=== PATIENT | female | born 1950 | race Caucasian/White ===

== ENCOUNTER 2022-11-11 20:30 | Inpatient (IN) | payer BC, MEDICARE ==
[~2022-11-11] VITALS: Ht 167.6 cm; Wt 101.4 kg
[2022-11-11 21:35] LABS: BASOPHILS # (AUTO) 0.1 X10'3 (0-0.2); BASOPHILS % (AUTO) 1.8 % (0-1); EOSINOPHILS # (AUTO) 0.1 X10'3 (0-0.9); EOSINOPHILS % (AUTO) 2.1 % (0-6); HEMATOCRIT 38.2 % (35.0-45.0); HEMOGLOBIN 12.8 g/dl (12.0-16.0); LYMPHOCYTES # (AUTO) 1.5 X10'3 (1.1-4.8); LYMPHOCYTES % (AUTO) 22.8 % (21-51); MEAN CORPUSCULAR HEMOGLOBIN 31.3 PG (27.0-31.0); MEAN CORPUSCULAR HGB CONC 33.5 g/dL (33.0-36.5); MEAN CORPUSCULAR VOLUME 93.4 FL (78-98); MEAN PLATELET VOLUME 7.8 FL (7.4-10.4); MONOCYTES # (AUTO) 0.4 X10'3 (0-0.9); MONOCYTES % (AUTO) 5.9 % (2-12); NEUTROPHILS # (AUTO) 4.5 X10'3 (1.8-7.7); NEUTROPHILS % (AUTO) 67.4 % (42-75); PLATELET COUNT 194 X10'3 (140-440); RED BLOOD COUNT 4.09 X10'6 (4.20-5.60); RED CELL DISTRIBUTION WIDTH 14.5 % (11.5-14.5); WHITE BLOOD COUNT 6.8 X10'3 (4.5-11.0)
[2022-11-11] MEDS ORDERED: PEG 3350/Na sulf,bicarb,Cl/KCl oral sol 4 liter bottle PO ONE (21:40)
[2022-11-11 21:46] LABS: ALANINE AMINOTRANSFERASE 24 U/L (12-78); ALBUMIN 3.5 G/DL (3.4-5.0); ALBUMIN/GLOBULIN RATIO 0.9 (1.1-1.5); ALKALINE PHOSPHATASE 86 IU/L (46-116); ANION GAP 7 (8-16); ASPARTATE AMINO TRANSFERASE 20 U/L (10-37); BILIRUBIN,TOTAL 0.2 MG/DL (0.1-1.0); BLOOD UREA NITROGEN 17 MG/DL (7-18); BUN/CREATININE RATIO 19.5 (10.0-20.0); CALCIUM 9.1 MG/DL (8.5-10.1); CHLORIDE 105 MMOL/L (99-107); CREATININE 0.87 MG/DL (0.40-0.90); GLUCOSE 96 MG/DL (70-104); POTASSIUM 3.8 MMOL/L (3.5-5.1); SODIUM 141 MMOL/L (135-145); TOTAL CARBON DIOXIDE 28.9 MMOL/L (24-32); TOTAL PROTEIN 7.3 G/DL (6.4-8.2); eGFR 64 ML/MIN
[2022-11-11] MEDS ORDERED: HYDROcodone/acetaminophen 10/325mg tab PO ONE (22:35)
[2022-11-11] MEDS ORDERED: ondansetron/PF 4mg/2ml inj IV PRN (22:40)
[2022-11-11] MEDS ORDERED: potassium Cl 20 mEq SR tablet PO PRN ×2 (22:40)
[2022-11-11] MEDS ORDERED: magnesium 4gm in 100ml NS 100 ML IV PRN (22:40)
[2022-11-11] MEDS ORDERED: magnesium Cl slow-release 64mg tablet PO PRN (22:40)
[2022-11-11] MEDS ORDERED: magnesium 2GM in 50ml NS 50 ML IV PRN (22:40)
[2022-11-11] MEDS ORDERED: potassium Cl 40MEQ/1/2NS 520ml 520 ML IV PRN (22:40)
[2022-11-11] MEDS ORDERED: acetaminophen 325mg tablet PO PRN (22:40)
[2022-11-11] MEDS: normal saline 1000ml 1,000 ML IV SCH (23:18)
--- NOTE | 2022-11-12 00:15 | NUR ---
PER DR BHATTI, NOT NECESSARY TO FIND BATTERIES IN PTS FECES ABSENCE OF FOREIGN BODIES WILL BE CONFIRMED WITH XRAY. PT IS IN BATHROOM NEARLY CONSTANTLY, SO OBTAINING FREQUENT VITAL SIGNS NOT PRACTICAL AT THIS TIME
[2022-11-12 03:50] LABS: MEAN PLATELET VOLUME 7.8 FL (7.4-10.4)
[2022-11-12 03:52] LABS: BASOPHILS % (AUTO) 0.5 % (0-1); EOSINOPHILS # (AUTO) 0.1 X10'3 (0-0.9); EOSINOPHILS % (AUTO) 2.4 % (0-6); HEMATOCRIT 35.4 % (35.0-45.0); HEMOGLOBIN 11.9 g/dl (12.0-16.0); LYMPHOCYTES # (AUTO) 1.7 X10'3 (1.1-4.8); LYMPHOCYTES % (AUTO) 28.1 % (21-51); MEAN CORPUSCULAR HEMOGLOBIN 31.5 PG (27.0-31.0); MEAN CORPUSCULAR HGB CONC 33.6 g/dL (33.0-36.5); MEAN CORPUSCULAR VOLUME 93.9 FL (78-98); MONOCYTES # (AUTO) 0.5 X10'3 (0-0.9); MONOCYTES % (AUTO) 8.1 % (2-12); NEUTROPHILS # (AUTO) 3.6 X10'3 (1.8-7.7); NEUTROPHILS % (AUTO) 60.9 % (42-75); PLATELET COUNT 179 X10'3 (140-440); RED BLOOD COUNT 3.77 X10'6 (4.20-5.60); RED CELL DISTRIBUTION WIDTH 14.4 % (11.5-14.5); WHITE BLOOD COUNT 5.9 X10'3 (4.5-11.0)
[2022-11-12 03:53] LABS: ALANINE AMINOTRANSFERASE 20 U/L (12-78); ALBUMIN/GLOBULIN RATIO 0.9 (1.1-1.5); ALKALINE PHOSPHATASE 70 IU/L (46-116); ANION GAP 9 (8-16); ASPARTATE AMINO TRANSFERASE 14 U/L (10-37); BILIRUBIN,TOTAL 0.4 MG/DL (0.1-1.0); BLOOD UREA NITROGEN 11 MG/DL (7-18); BUN/CREATININE RATIO 18.3 (10.0-20.0); CALCIUM 8.3 MG/DL (8.5-10.1); CHLORIDE 109 MMOL/L (99-107); GLUCOSE 89 MG/DL (70-104); MAGNESIUM 1.8 MG/DL (1.5-2.4); POTASSIUM 3.4 MMOL/L (3.5-5.1); SODIUM 145 MMOL/L (135-145); TOTAL PROTEIN 6.2 G/DL (6.4-8.2); eGFR > 90 ML/MIN
[2022-11-12] MEDS: K and/or MAG REPLACEMENT MC SCH ×2 (08:33→20:00)
[2022-11-12] MEDS ORDERED: albuterol 2.5 MG/3 ML nebule NEB PRN (09:35)
--- NOTE | 2022-11-12 12:42 | NUR ---
SPOKE WITH SMILEY FROM [facility], UPDATE WAS GIVEN. THEY CONFIRMED THAT THE MONITORING OCCURRING IS APPROPRIATE AT THIS TIME. [facility] WILL F/U AGAIN TOMORROW
[2022-11-12] MEDS ORDERED: LATA2.5D14 RIGHTEYE (14:33)
[2022-11-12] MEDS ORDERED: NYST60PO2 VG (14:33)
[2022-11-12] MEDS ORDERED: DIPH1TAB PO (14:34)
[2022-11-12] MEDS ORDERED: OXYB5TAB16 PO (14:35)
[2022-11-12] MEDS ORDERED: NYST15CR36 VG (14:36)
[2022-11-12] MEDS ORDERED: LORA-75 PO (14:37)
[2022-11-12] MEDS ORDERED: FAMO20TA10 PO (14:37)
[2022-11-12] MEDS ORDERED: ACET-2971 PO (14:38)
[2022-11-12] MEDS ORDERED: ATOR20TA66 PO (14:39)
[2022-11-12] MEDS ORDERED: LOSA50TA64 PO (14:39)
[2022-11-12] MEDS ORDERED: CRAN400C PO (14:40)
[2022-11-12] MEDS ORDERED: SERT-434 PO (14:41)
[2022-11-12] MEDS ORDERED: OMEP20CA16 PO (14:42)
[2022-11-12] MEDS ORDERED: ALBU17AE26 IH (14:42)
[2022-11-12] MEDS ORDERED: ASPIRIN CAFFEINE PO (14:45)
[2022-11-12 15:58] VITALS: PULSE 62; RESP 15; O2SAT 92
[2022-11-12 16:30] VITALS: BP 170/75; PULSE 62; RESP 16; TEMP 98.1; O2SAT 94
--- NOTE | 2022-11-12 17:31 | NUR ---
PAGER ID: [phone] MESSAGE: jaime garza [phone] re: Kaela Parra [phone]. please address med rec, pts BP 177/75. thank you
[2022-11-12] MEDS ORDERED: pantoprazole 40mg Tablet.DR PO PRN (17:35)
[2022-11-12] MEDS ORDERED: acetaminophen 325mg tablet PO PRN (17:35)
[2022-11-12] MEDS ORDERED: non-formulary drug (Albuterol 2 PUFFS) IH PRN (17:35)
[2022-11-12] MEDS: losartan 50mg tablet PO SCH (17:55)
[2022-11-12 18:00] VITALS: BP 170/75; PULSE 67; RESP 16; TEMP 98.1; O2SAT 94
--- NOTE | 2022-11-12 18:00 | NUR ---
Patient in room [facility] 4008. I have received report from INESSA Cardona and had the opportunity to ask questions and assume patient care.
[2022-11-12] MEDS: normal saline 1000ml 1,000 ML IV SCH (18:40)
[2022-11-12 22:04] VITALS: BP 161/66; PULSE 61; RESP 16; TEMP 98; O2SAT 96
--- NOTE | 2022-11-12 22:51 | NUR ---
2 nurses attempted to put a new iv in pt without success. Addendum: 11/13/22 at 0158 by Janeth Balderas RN supervisor [employer] attempted to start iv but was unable to start. call to er charge nurse to see if she can start an iv but is unable to come to floor. called icu charge nurse to see if she could start an iv but is unable to come to floor.
[2022-11-13] VITALS (7 sets, daily range): BP systolic 130–163; BP diastolic 66–82; PULSE 54–75; RESP 14–18; TEMP 97.5–98.4; O2SAT 94–96
--- NOTE | 2022-11-13 05:59 | NUR ---
Problems reprioritized. Patient report given, questions answered & plan of care reviewed with INESSA Cardona.
[2022-11-13] MEDS: losartan 50mg tablet PO SCH (07:09)
[2022-11-13] MEDS: latanoprost 0.005% 2.5ml ophthalmic drops RIGHTEYE SCH (07:09)
[2022-11-13] MEDS: atorvastatin 20mg tablet PO SCH (07:09)
[2022-11-13] MEDS: sertraline 50mg tablet PO SCH (07:10)
[2022-11-13 07:13] LABS: BASOPHILS % (AUTO) 0.6 % (0-1); EOSINOPHILS # (AUTO) 0.2 X10'3 (0-0.9); EOSINOPHILS % (AUTO) 3.1 % (0-6); HEMATOCRIT 42.7 % (35.0-45.0); LYMPHOCYTES # (AUTO) 1.8 X10'3 (1.1-4.8); LYMPHOCYTES % (AUTO) 29.8 % (21-51); MEAN CORPUSCULAR HEMOGLOBIN 30.9 PG (27.0-31.0); MEAN CORPUSCULAR HGB CONC 32.7 g/dL (33.0-36.5); MEAN CORPUSCULAR VOLUME 94.6 FL (78-98); MEAN PLATELET VOLUME 8.7 FL (7.4-10.4); MONOCYTES # (AUTO) 0.5 X10'3 (0-0.9); MONOCYTES % (AUTO) 7.7 % (2-12); NEUTROPHILS # (AUTO) 3.5 X10'3 (1.8-7.7); NEUTROPHILS % (AUTO) 58.8 % (42-75); PLATELET COUNT 215 X10'3 (140-440); RED BLOOD COUNT 4.51 X10'6 (4.20-5.60); RED CELL DISTRIBUTION WIDTH 14.5 % (11.5-14.5)
[2022-11-13 07:19] LABS: ALANINE AMINOTRANSFERASE 24 U/L (12-78); ALBUMIN 3.6 G/DL (3.4-5.0); ALBUMIN/GLOBULIN RATIO 0.9 (1.1-1.5); ALKALINE PHOSPHATASE 89 IU/L (46-116); ANION GAP 7 (8-16); ASPARTATE AMINO TRANSFERASE 24 U/L (10-37); BILIRUBIN,TOTAL 0.6 MG/DL (0.1-1.0); BLOOD UREA NITROGEN 7 MG/DL (7-18); BUN/CREATININE RATIO 9.2 (10.0-20.0); CALCIUM 9.3 MG/DL (8.5-10.1); CHLORIDE 106 MMOL/L (99-107); CREATININE 0.76 MG/DL (0.40-0.90); GLUCOSE 94 MG/DL (70-104); MAGNESIUM 2.2 MG/DL (1.5-2.4); POTASSIUM 3.9 MMOL/L (3.5-5.1); SODIUM 140 MMOL/L (135-145); TOTAL CARBON DIOXIDE 26.6 MMOL/L (24-32); TOTAL PROTEIN 7.7 G/DL (6.4-8.2); eGFR 75 ML/MIN
[2022-11-13] MEDS: NYSTATIN CREAM - 30GM TUBE TP PRN (07:36)
[2022-11-13] MEDS: K and/or MAG REPLACEMENT MC SCH ×2 (08:00→18:40)
[2022-11-13] MEDS: polyethylene glycol 3350 17gm powd pack PO SCH ×2 (10:50→21:02)
[2022-11-13] MEDS: normal saline 1000ml 1,000 ML IV SCH ×2 (12:54→19:41)
--- NOTE | 2022-11-13 16:15 | NUR ---
Pt remains in good spirits. C/o headache this am, Acetaminophen administered per orders. Repeat KUB taken today. Miralax given this shift, no bowel movement yet. Primary RN encouraged pt to ambulate in the torres however patient states she doesn't want to be seen by anyone. Pt does ambulate to bathroom. Will continue to monitor patient
--- NOTE | 2022-11-13 18:42 | NUR ---
Patient in room [facility]TH[facility] 4008. I have received report from DAMIÁN WYLIE and had the opportunity to ask questions and assume patient care.
--- NOTE | 2022-11-13 23:03 | NUR ---
Agree with DUAL HOSE CEMENTER assessment except where I documented my findings.
[2022-11-14] VITALS (7 sets, daily range): BP systolic 106–156; BP diastolic 64–80; PULSE 61–93; RESP 15–18; TEMP 96.9–98.8; O2SAT 92–93
[2022-11-14 06:13] LABS: BASOPHILS % (AUTO) 0.7 % (0-1); EOSINOPHILS # (AUTO) 0.2 X10'3 (0-0.9); EOSINOPHILS % (AUTO) 3.9 % (0-6); HEMATOCRIT 39.9 % (35.0-45.0); HEMOGLOBIN 13.2 g/dl (12.0-16.0); LYMPHOCYTES # (AUTO) 1.4 X10'3 (1.1-4.8); LYMPHOCYTES % (AUTO) 26.7 % (21-51); MEAN CORPUSCULAR HEMOGLOBIN 31.5 PG (27.0-31.0); MEAN CORPUSCULAR HGB CONC 33.2 g/dL (33.0-36.5); MEAN CORPUSCULAR VOLUME 94.8 FL (78-98); MEAN PLATELET VOLUME 7.9 FL (7.4-10.4); MONOCYTES # (AUTO) 0.5 X10'3 (0-0.9); NEUTROPHILS % (AUTO) 59.7 % (42-75); PLATELET COUNT 192 X10'3 (140-440); RED BLOOD COUNT 4.21 X10'6 (4.20-5.60); RED CELL DISTRIBUTION WIDTH 14.2 % (11.5-14.5); WHITE BLOOD COUNT 5.1 X10'3 (4.5-11.0)
--- NOTE | 2022-11-14 06:25 | NUR ---
Problems reprioritized. Patient report given, questions answered & plan of care reviewed with suhas garza.
--- NOTE | 2022-11-14 06:31 | NUR ---
Patient in room [facility]TH[facility] 4008. I have received report from MARTY Carmona and had the opportunity to ask questions and assume patient care.
[2022-11-14 06:45] LABS: ALANINE AMINOTRANSFERASE 24 U/L (12-78); ALBUMIN 3.2 G/DL (3.4-5.0); ALBUMIN/GLOBULIN RATIO 0.9 (1.1-1.5); ALKALINE PHOSPHATASE 73 IU/L (46-116); ANION GAP 8 (8-16); ASPARTATE AMINO TRANSFERASE 19 U/L (10-37); BILIRUBIN,TOTAL 0.5 MG/DL (0.1-1.0); BLOOD UREA NITROGEN 6 MG/DL (7-18); BUN/CREATININE RATIO 8.5 (10.0-20.0); CALCIUM 9.3 MG/DL (8.5-10.1); CHLORIDE 107 MMOL/L (99-107); CREATININE 0.71 MG/DL (0.40-0.90); GLUCOSE 96 MG/DL (70-104); POTASSIUM 3.8 MMOL/L (3.5-5.1); SODIUM 142 MMOL/L (135-145); TOTAL CARBON DIOXIDE 26.6 MMOL/L (24-32); TOTAL PROTEIN 6.9 G/DL (6.4-8.2); eGFR 81 ML/MIN
[2022-11-14] MEDS: losartan 50mg tablet PO SCH (07:26)
[2022-11-14] MEDS: atorvastatin 20mg tablet PO SCH (07:26)
[2022-11-14] MEDS: sertraline 50mg tablet PO SCH (07:26)
[2022-11-14] MEDS: latanoprost 0.005% 2.5ml ophthalmic drops RIGHTEYE SCH (07:27)
[2022-11-14] MEDS: K and/or MAG REPLACEMENT MC SCH ×2 (08:00→20:00)
[2022-11-14] MEDS: normal saline 1000ml 1,000 ML IV SCH ×2 (08:51→20:56)
[2022-11-14] MEDS ORDERED: bisacodyl 5mg tablet.DR PO ONE (14:30)
--- NOTE | 2022-11-14 16:25 | NUR ---
Patient stated having BM and would like to wait to have soap suds enema.
--- NOTE | 2022-11-14 18:36 | NUR ---
Problems reprioritized. Patient report given, questions answered & plan of care reviewed with LVN. Kristine.
[2022-11-14] MEDS: polyethylene glycol 3350 17gm powd pack PO SCH (20:48)
[2022-11-14] MEDS: NYSTATIN CREAM - 30GM TUBE TP PRN (20:53)
[2022-11-15] VITALS (7 sets, daily range): BP systolic 135–161; BP diastolic 68–75; PULSE 54–70; RESP 16–18; TEMP 97.2–98.2; O2SAT 94–97
--- NOTE | 2022-11-15 06:11 | NUR ---
TOOL DESIGN ENGINEER documentation: I have reviewed and agree with all interventions, assessments performed and documented by Kristine. Addendum: 11/15/22 at 0612 by Michael Martins RN Amended: Links added.
--- NOTE | 2022-11-15 06:16 | NUR ---
Problems reprioritized. Patient report given, questions answered & plan of care reviewed with Jannet FERGUSON.
[2022-11-15 07:04] LABS: BASOPHILS % (AUTO) 0.7 % (0-1); EOSINOPHILS # (AUTO) 0.2 X10'3 (0-0.9); HEMATOCRIT 37.4 % (35.0-45.0); HEMOGLOBIN 12.5 g/dl (12.0-16.0); LYMPHOCYTES # (AUTO) 1.5 X10'3 (1.1-4.8); MEAN CORPUSCULAR HEMOGLOBIN 31.8 PG (27.0-31.0); MEAN CORPUSCULAR HGB CONC 33.5 g/dL (33.0-36.5); MEAN CORPUSCULAR VOLUME 94.9 FL (78-98); MEAN PLATELET VOLUME 8.8 FL (7.4-10.4); MONOCYTES # (AUTO) 0.5 X10'3 (0-0.9); MONOCYTES % (AUTO) 8.2 % (2-12); NEUTROPHILS # (AUTO) 3.6 X10'3 (1.8-7.7); NEUTROPHILS % (AUTO) 62.1 % (42-75); PLATELET COUNT 180 X10'3 (140-440); RED BLOOD COUNT 3.93 X10'6 (4.20-5.60); RED CELL DISTRIBUTION WIDTH 14.4 % (11.5-14.5); WHITE BLOOD COUNT 5.8 X10'3 (4.5-11.0)
[2022-11-15 07:05] LABS: ALANINE AMINOTRANSFERASE 20 U/L (12-78); ALBUMIN 3.1 G/DL (3.4-5.0); ALBUMIN/GLOBULIN RATIO 0.9 (1.1-1.5); ALKALINE PHOSPHATASE 78 IU/L (46-116); ANION GAP 8 (8-16); ASPARTATE AMINO TRANSFERASE 20 U/L (10-37); BILIRUBIN,TOTAL 0.4 MG/DL (0.1-1.0); BLOOD UREA NITROGEN 8 MG/DL (7-18); BUN/CREATININE RATIO 11.6 (10.0-20.0); CALCIUM 8.8 MG/DL (8.5-10.1); CHLORIDE 107 MMOL/L (99-107); CREATININE 0.69 MG/DL (0.40-0.90); GLUCOSE 93 MG/DL (70-104); MAGNESIUM 2.2 MG/DL (1.5-2.4); SODIUM 140 MMOL/L (135-145); TOTAL CARBON DIOXIDE 25.4 MMOL/L (24-32); TOTAL PROTEIN 6.5 G/DL (6.4-8.2); eGFR 84 ML/MIN
[2022-11-15] MEDS: latanoprost 0.005% 2.5ml ophthalmic drops RIGHTEYE SCH (07:43)
[2022-11-15] MEDS: losartan 50mg tablet PO SCH (07:44)
[2022-11-15] MEDS: atorvastatin 20mg tablet PO SCH (07:44)
[2022-11-15] MEDS: sertraline 50mg tablet PO SCH (07:44)
[2022-11-15] MEDS: K and/or MAG REPLACEMENT MC SCH ×2 (08:00→19:39)
--- NOTE | 2022-11-15 12:07 | NUR ---
I have reviewed and agree with interventions, assessments, and documentation by Jannet Shirley LVN.
[2022-11-15] MEDS: mupirocin 2% nasal ointment 1gm UD NS SCH ×2 (14:12→19:39)
[2022-11-15] MEDS: normal saline 1000ml 1,000 ML IV SCH ×2 (18:14→23:50)
--- NOTE | 2022-11-15 18:32 | NUR ---
Problems reprioritized. Patient report given, questions answered & plan of care reviewed with Kristine CRISOSTOMO.
[2022-11-15] MEDS: polyethylene glycol 3350 17gm powd pack PO SCH (20:47)
[2022-11-16] VITALS (7 sets, daily range): BP systolic 141–161; BP diastolic 72–97; PULSE 60–92; RESP 16–20; TEMP 96.9–98.1; O2SAT 92–98
--- NOTE | 2022-11-16 06:04 | NUR ---
I have reviewed and agree with all interventions, assessments performed and documented by MARTY LOMBARDO.
--- NOTE | 2022-11-16 06:08 | NUR ---
Problems reprioritized. Patient report given, questions answered & plan of care reviewed with DEREK FERGUSON.
[2022-11-16 06:40] LABS: BASOPHILS % (AUTO) 0.4 % (0-1); EOSINOPHILS # (AUTO) 0.1 X10'3 (0-0.9); EOSINOPHILS % (AUTO) 1.8 % (0-6); HEMATOCRIT 39.7 % (35.0-45.0); HEMOGLOBIN 13.1 g/dl (12.0-16.0); LYMPHOCYTES # (AUTO) 1.4 X10'3 (1.1-4.8); LYMPHOCYTES % (AUTO) 21.9 % (21-51); MEAN CORPUSCULAR HEMOGLOBIN 31.2 PG (27.0-31.0); MEAN CORPUSCULAR HGB CONC 32.9 g/dL (33.0-36.5); MEAN CORPUSCULAR VOLUME 94.9 FL (78-98); MEAN PLATELET VOLUME 8.3 FL (7.4-10.4); MONOCYTES # (AUTO) 0.5 X10'3 (0-0.9); MONOCYTES % (AUTO) 7.4 % (2-12); NEUTROPHILS # (AUTO) 4.5 X10'3 (1.8-7.7); NEUTROPHILS % (AUTO) 68.5 % (42-75); PLATELET COUNT 187 X10'3 (140-440); RED BLOOD COUNT 4.19 X10'6 (4.20-5.60); RED CELL DISTRIBUTION WIDTH 14.2 % (11.5-14.5); WHITE BLOOD COUNT 6.5 X10'3 (4.5-11.0)
[2022-11-16 07:00] LABS: ALANINE AMINOTRANSFERASE 22 U/L (12-78); ALBUMIN 3.2 G/DL (3.4-5.0); ALBUMIN/GLOBULIN RATIO 0.8 (1.1-1.5); ALKALINE PHOSPHATASE 81 IU/L (46-116); ANION GAP 7 (8-16); ASPARTATE AMINO TRANSFERASE 23 U/L (10-37); BILIRUBIN,TOTAL 0.4 MG/DL (0.1-1.0); BLOOD UREA NITROGEN 7 MG/DL (7-18); BUN/CREATININE RATIO 9.5 (10.0-20.0); CALCIUM 9.1 MG/DL (8.5-10.1); CHLORIDE 108 MMOL/L (99-107); CREATININE 0.74 MG/DL (0.40-0.90); GLUCOSE 92 MG/DL (70-104); SODIUM 142 MMOL/L (135-145); TOTAL CARBON DIOXIDE 27.3 MMOL/L (24-32); eGFR 77 ML/MIN
[2022-11-16 07:04] LABS: POTASSIUM 3.9 MMOL/L (3.5-5.1)
[2022-11-16] MEDS: sertraline 50mg tablet PO SCH (07:32)
[2022-11-16] MEDS: atorvastatin 20mg tablet PO SCH (07:32)
[2022-11-16] MEDS: losartan 50mg tablet PO SCH (07:33)
[2022-11-16] MEDS: mupirocin 2% nasal ointment 1gm UD NS SCH ×2 (07:35→21:48)
[2022-11-16] MEDS: latanoprost 0.005% 2.5ml ophthalmic drops RIGHTEYE SCH (07:37)
[2022-11-16] MEDS: K and/or MAG REPLACEMENT MC SCH ×2 (07:41→20:00)
--- NOTE | 2022-11-16 12:33 | NUR ---
Initial: Pt admit DX ingestion error of 6 hearing aid batteries and HTN per EMR. PO 100% initial clear and full liquids diets past 4 days though only meeting ~42% protein and ~92% kcal estimated needs given nature of restrictive diets. Pt NPO this AM pending colonoscopic intervention since still has not passed batteries despite multiple BM's per EMR. MARIA DEL CARMEN d/w CREDIT ASSESSMENT ANALYST recommends advancing to solids if MD agreeable post-procedure. In meantime will send shakes TIDWM to better meet needs-dietary notified. LBM 11/16 per EMR. Will continue to follow. Rec: 1. advance to regular diet as medically indicated 2. shakes TIDWM while on full liquids to assist meeting needs 3. routine bowel care 4. if to remain on liquids diet; consider routine MVM per physician discretion 5. scaled wt this admit; subsequent weekly wt Addendum: 11/16/22 at [address] Amended: Links added.
[2022-11-16] MEDS ORDERED: PEG 3350/Na sulf,bicarb,Cl/KCl oral sol 4 liter bottle PO ONE (16:15)
--- NOTE | 2022-11-16 18:00 | NUR ---
I have reviewed and agree with interventions, assessments, and documentation by Jannet Shirley LVN.
--- NOTE | 2022-11-16 18:20 | NUR ---
Patient in room [facility] 4008. I have received report from MARTY REED and had the opportunity to ask questions and assume patient care.
[2022-11-16] MEDS: normal saline 1000ml 1,000 ML IV SCH (20:54)
[2022-11-16] MEDS: polyethylene glycol 3350 17gm powd pack PO SCH (21:30)
[2022-11-17] VITALS (8 sets, daily range): BP systolic 125–161; BP diastolic 62–88; PULSE 67–85; RESP 15–18; TEMP 97.5–98.7; O2SAT 92–95
--- NOTE | 2022-11-17 06:15 | NUR ---
Problems reprioritized. Patient report given, questions answered & plan of care reviewed with MARTY REED.
[2022-11-17] MEDS: mupirocin 2% nasal ointment 1gm UD NS SCH ×2 (07:57→19:54)
[2022-11-17] MEDS: sertraline 50mg tablet PO SCH (07:58)
[2022-11-17] MEDS: atorvastatin 20mg tablet PO SCH (07:58)
[2022-11-17] MEDS: losartan 50mg tablet PO SCH (08:00)
[2022-11-17] MEDS: K and/or MAG REPLACEMENT MC SCH ×2 (08:00→18:48)
[2022-11-17] MEDS: latanoprost 0.005% 2.5ml ophthalmic drops RIGHTEYE SCH (08:01)
[2022-11-17] MEDS: normal saline 1000ml 1,000 ML IV SCH ×2 (10:14→23:34)
--- NOTE | 2022-11-17 18:00 | NUR ---
I have reviewed and agree with interventions, assessments, and documentation by Jannet Shirley LVN.
--- NOTE | 2022-11-17 18:30 | NUR ---
Patient in room [facility]TH[facility] 4008. I have received report from Jannet FERGUSON and had the opportunity to ask questions and assume patient care.
[2022-11-17] MEDS: polyethylene glycol 3350 17gm powd pack PO SCH (19:54)
[2022-11-18] MEDS: normal saline 1000ml 1,000 ML IV SCH (03:59)
[2022-11-18 06:00] VITALS: BP 139/68; PULSE 65; RESP 14; TEMP 97.7; O2SAT 95
--- NOTE | 2022-11-18 06:37 | NUR ---
Patient in room [facility] 4008. I have received report from INESSA Amaya and had the opportunity to ask questions and assume patient care.
[2022-11-18 07:50] VITALS: PULSE 75; RESP 16; O2SAT 97
[2022-11-18] MEDS: mupirocin 2% nasal ointment 1gm UD NS SCH (07:56)
[2022-11-18] MEDS: latanoprost 0.005% 2.5ml ophthalmic drops RIGHTEYE SCH (07:56)
[2022-11-18] MEDS: sertraline 50mg tablet PO SCH (07:57)
[2022-11-18] MEDS: losartan 50mg tablet PO SCH (07:57)
[2022-11-18] MEDS: atorvastatin 20mg tablet PO SCH (07:57)
[2022-11-18 08:00] VITALS: RESP 14; O2SAT 95
[2022-11-18] MEDS: K and/or MAG REPLACEMENT MC SCH (08:00)
[2022-11-18 10:00] VITALS: BP 139/78; PULSE 71; RESP 18; TEMP 96.6; O2SAT 94
[2022-11-18 10:38] LABS: BASOPHILS % (AUTO) 0.5 % (0-1); EOSINOPHILS # (AUTO) 0.1 X10'3 (0-0.9); EOSINOPHILS % (AUTO) 1.1 % (0-6); HEMATOCRIT 39.3 % (35.0-45.0); HEMOGLOBIN 13.1 g/dl (12.0-16.0); LYMPHOCYTES # (AUTO) 1.4 X10'3 (1.1-4.8); LYMPHOCYTES % (AUTO) 26.4 % (21-51); MEAN CORPUSCULAR HEMOGLOBIN 31.4 PG (27.0-31.0); MEAN CORPUSCULAR HGB CONC 33.2 g/dL (33.0-36.5); MEAN CORPUSCULAR VOLUME 94.4 FL (78-98); MEAN PLATELET VOLUME 8.1 FL (7.4-10.4); MONOCYTES # (AUTO) 0.4 X10'3 (0-0.9); MONOCYTES % (AUTO) 7.7 % (2-12); NEUTROPHILS # (AUTO) 3.3 X10'3 (1.8-7.7); NEUTROPHILS % (AUTO) 64.3 % (42-75); PLATELET COUNT 183 X10'3 (140-440); RED BLOOD COUNT 4.16 X10'6 (4.20-5.60); RED CELL DISTRIBUTION WIDTH 14.2 % (11.5-14.5); WHITE BLOOD COUNT 5.1 X10'3 (4.5-11.0)
[2022-11-18 10:47] LABS: ALBUMIN 3.3 G/DL (3.4-5.0); ANION GAP 8 (8-16); BLOOD UREA NITROGEN 9 MG/DL (7-18); CALCIUM 9.3 MG/DL (8.5-10.1); CHLORIDE 106 MMOL/L (99-107); CREATININE 0.69 MG/DL (0.40-0.90); GLUCOSE 137 MG/DL (70-104); POTASSIUM 3.8 MMOL/L (3.5-5.1); SODIUM 139 MMOL/L (135-145); TOTAL CARBON DIOXIDE 24.7 MMOL/L (24-32); eGFR 84 ML/MIN
--- NOTE | 2022-11-18 13:51 | NUR ---
PHYSICIAN RELATIONS REPRESENTATIVE documentation: I have reviewed and agree with all interventions, assessments performed and documented by Gio Cobian LVN.
--- NOTE | 2022-11-18 16:50 | NUR ---
Pt stable for discharge. IV discontinued before d/c. Patient left with all belongings. Patient left facility with the assistance of one staff member. Patient left with family friend to drive her home to [place], [place].
== END 2022-11-18 16:30 | disposition home or self-care (01) | DRG 394 ==
LOC: ER 20:31 → ED HOLD 22:43 → EDBEDREQSVC 11-12 06:32 → ORTHO 4S 11-12 16:19
PROVIDERS: ADMIT Internal Medicine; ATTEND Internal Medicine
DX: T18.9XXA Foreign body of alimentary tract, part unspecified, initial encounter (principal); E46 Unspecified protein-calorie malnutrition; I10 Essential (primary) hypertension; E78.00 Pure hypercholesterolemia, unspecified; Z96.642 Presence of left artificial hip joint; Z96.653 Presence of artificial knee joint, bilateral; F32.A Depression, unspecified; B95.62 Methicillin resistant Staphylococcus aureus infection as the cause of diseases classified elsewhere; K58.9 Irritable bowel syndrome, unspecified; G89.29 Other chronic pain; K21.9 Gastro-esophageal reflux disease without esophagitis; J45.909 Unspecified asthma, uncomplicated; Z86.711 Personal history of pulmonary embolism; Z88.2 Allergy status to sulfonamides; Z90.710 Acquired absence of both cervix and uterus; Z88.5 Allergy status to narcotic agent; Z88.8 Allergy status to other drugs, medicaments and biological substances; Z90.49 Acquired absence of other specified parts of digestive tract; Z79.899 Other long term (current) drug therapy; Z79.82 Long term (current) use of aspirin; Z68.36 Body mass index [BMI] 36.0-36.9, adult; Z85.828 Personal history of other malignant neoplasm of skin
CPT/HCPCS: 36415; 74018; 74176; 80048; 80053; 83735; 84145; 85025; 85651; 87081; 94760; 97116; 97161; 97530; 99285; G0378; J3480; J7030